=== PATIENT | male | born 2000 | race Caucasian/White ===

== ENCOUNTER 2021-01-06 22:28 | Emergency (ER) | payer SELFPAY ==
[2021-01-07 00:10] LABS: Bilirubin Negative (Negative); Blood, Urine Negative (Negative); Clarity Clear (Clear); Glucose, Urine (Dipstick) Normal (Negative); Ketone, Urine Trace mg/dL (Negative); Leukocyte Negative Leu/uL (Negative); Nitrite Negative (Negative); Protein, Urine (Dipstick) 10 mg/dL (Neg-Trace); Specific Gravity, Urine 1.034 (1.002-1.036)
== END 2021-01-07 00:12 | disposition home or self-care (01) ==
LOC: ERS 22:28
DX: N50.811 Right testicular pain (principal)
CPT/HCPCS: 76870; 81003; 87086; 93976

== ENCOUNTER 2021-01-12 23:32 | Emergency (ER) | payer SELFPAY ==
[2021-01-13] MEDS ORDERED: Morphine 10 MG/ML VIAL ONE (01:38)
== END 2021-01-13 02:06 | disposition home or self-care (01) ==
LOC: ERS 23:32
DX: G89.18 Other acute postprocedural pain (principal); N50.811 Right testicular pain
CPT/HCPCS: 96372; 99283; J2270